=== PATIENT | male | born 1995 | race African-American/Black ===

== ENCOUNTER 2019-07-16 19:04 | Emergency (ER) | payer MEDICAID ==
[~2019-07-16] VITALS: Ht 185.4 cm; Wt 77.2 kg
[2019-07-16 21:17] VITALS: BP 110/67
[2019-07-16] MEDS ORDERED: TETANUS-DIPTH-ACEL PERTUSSIS 0.5ML SYRG IM ONE (22:00)
[2019-07-16] MEDS ORDERED: ACETAMINOPHEN/CODEINE#3 (300/30mg) TAB PO ONE (22:00)
[2019-07-16] MEDS ORDERED: cefTRIAXone SOD 1,000 MG VL IM ONE (22:00)
== END 2019-07-17 01:25 | disposition home or self-care (01) ==
LOC: ER 19:06
DX: S61.432A Puncture wound without foreign body of left hand, initial encounter (principal); W31.1XXA Contact with metalworking machines, initial encounter; Y93.89 Activity, other specified; Y99.8 Other external cause status; Y92.89 Other specified places as the place of occurrence of the external cause
CPT/HCPCS: 90471; 90715; 96372; 99283; J0696

== ENCOUNTER 2019-09-16 04:45 | Emergency (ER) | payer MEDICAID ==
[~2019-09-16] VITALS: Ht 182.9 cm; Wt 83.9 kg
[2019-09-16 05:05] VITALS: BP 134/64
[2019-09-16] MEDS ORDERED: ASPirin 81 mg TAB PO ONE (07:00)
== END 2019-09-16 07:38 | disposition left against medical advice (07) ==
LOC: EDBD 04:45 → ER 04:45
DX: R07.89 Other chest pain (principal); F41.9 Anxiety disorder, unspecified; F17.210 Nicotine dependence, cigarettes, uncomplicated; F12.10 Cannabis abuse, uncomplicated
CPT/HCPCS: 71046; 93005